=== PATIENT | male | born 1975 | race Caucasian/White ===

== ENCOUNTER 2021-09-16 11:31 | Emergency (ER) | payer SELFPAY ==
[~2021-09-16] VITALS: Ht 172.7 cm; Wt 82.0 kg
[2021-09-16 11:35] VITALS: BP 150/105
== END 2021-09-16 11:53 | disposition left against medical advice (07) ==
LOC: ER 11:42
DX: R06.81 Apnea, not elsewhere classified (principal); R00.0 Tachycardia, unspecified; F12.90 Cannabis use, unspecified, uncomplicated; F11.90 Opioid use, unspecified, uncomplicated; F10.20 Alcohol dependence, uncomplicated; Y90.9 Presence of alcohol in blood, level not specified; K75.9 Inflammatory liver disease, unspecified; Z91.19 Patient's noncompliance with other medical treatment and regimen
CPT/HCPCS: 93005; 99283